=== PATIENT | female | born 1935 | race Asian ===

== ENCOUNTER 2022-10-02 01:15 | Inpatient (IN) | payer OTHER, MEDICAID ==
[~2022-10-02] VITALS: Ht 157.5 cm; Wt 63.5 kg
--- NOTE | 2022-10-02 01:19 | NUR ---
DONTE ALS TO BED #11
--- NOTE | 2022-10-02 01:20 | NUR ---
DR. JOSEPH EVALUATING PT
--- NOTE | 2022-10-02 01:20 | NUR ---
DONTE FROM [facility] WITH C/O CHEST PAIN SINCE 28. PT SPEAKS MANDARIN/KHMER. INTERPRETOR WAS USED. PMH : STROKE, HTN, SD, A-FIB, SSS, CHF
[2022-10-02 01:22] VITALS: BP 113/74
[2022-10-02 01:35] LABS: BASOPHILS # (AUTO) 0.1 K/uL (0.00-0.22); BASOPHILS % (AUTO) 1.3 % (0.0-2.0); EOSINOPHILS # (AUTO) 0.1 K/uL (0-0.4); EOSINOPHILS % (AUTO) 2.6 % (0.0-4.0); HEMATOCRIT 34.6 % (36-48); HEMOGLOBIN 11.3 g/dL (12.0-16.0); LYMPHOCYTES # (AUTO) 0.6 K/uL (2.5-16.5); LYMPHOCYTES % (AUTO) 11.6 % (20.5-51.1); MEAN CORPUSCULAR HEMOGLOBIN 23 pg (27-31); MEAN CORPUSCULAR HGB CONC 33 g/dL (33-37); MEAN CORPUSCULAR VOLUME 70.9 fL (80-94); MONOCYTES # (AUTO) 0.5 K/uL (0.8-1.0); MONOCYTES % (AUTO) 10.6 % (1.7-9.3); NEUTROPHILS # (AUTO) 3.7 K/uL (1.8-7.7); NEUTROPHILS % (AUTO) 73.9 % (42.2-75.2); PLATELET COUNT (AUTO) 210 K/uL (140-450); RED BLOOD CELL COUNT(AUTO) 4.88 MIL/uL (4.20-5.40); RED CELL DISTRIBUTION WIDTH 14.7 % (11.6-13.7)
[2022-10-02 02:07] LABS: ALBUMIN 3.1 g/dL (3.4-5.0); ANION GAP 13.1 (8-16); ASPARTATE AMINOTRANSFERASE 23 U/L (15-37); CARBON DIOXIDE 27.1 mmol/L (21-32); CHLORIDE 106 mmol/L (98-107); CREATININE 0.9 mg/dL (0.6-1.3); GLUCOSE 103 mg/dL (74-106); POTASSIUM 4.2 mmol/L (3.5-5.1); SODIUM SERUM 142 mmol/L (136-145); TOTAL BILIRUBIN 0.5 mg/dL (0.0-1.0); UREA NITROGEN, BLOOD 24 mg/dL (7-18)
[2022-10-02] MEDS ORDERED: MORPHINE SULFATE 2 MG/ML SYR IM STA (02:40)
[2022-10-02] MEDS ORDERED: ACETAMINOPHEN EXTRA STRENGTH 500 MG TAB PO ONE (02:40)
--- NOTE | 2022-10-02 02:40 | NUR ---
EAN SWAB OBTAINED AND SENT TO LAB
--- NOTE | 2022-10-02 02:49 | NUR ---
TO CT VIA [facility]
--- NOTE | 2022-10-02 03:00 | NUR ---
RETURNEED FROM CT
--- NOTE | 2022-10-02 07:30 | NUR ---
REPORT RECEIVED FROM FAUSTINA CIFUENTES. ASSUMED CARE AT THIS TIME
[2022-10-02 08:34] LABS: PROTHROMBIN TIME 10.5 secs (10.8-13.4)
--- NOTE | 2022-10-02 08:40 | NUR ---
PT MOVED TO ER BED2
--- NOTE | 2022-10-02 08:42 | NUR ---
Teofilo salgado in [facility] - 10/02/22 at 0849 by PHSEP pt provided w/ breakfast. pt awake and eating in bed
--- NOTE | 2022-10-02 08:42 | NUR ---
pt provided w/ breakfast. left at bedside
--- NOTE | 2022-10-02 09:00 | NUR ---
assessment attempted using mandarin seam rubber. pt not answering to questions. no visible distress. on alarm security or surveillance monitor. bed at lowest position, bed rails upx2. mandarin seam rubber #[id number]
[2022-10-02] MEDS ORDERED: ACETAMINOPHEN 325 MG TAB PO PRN (10:20)
[2022-10-02] MEDS ORDERED: POTASSIUM CHLORIDE 10 MEQ TABER PO PRN (10:20)
[2022-10-02] MEDS ORDERED: ONDANSETRON 4 MG/2 ML VIAL IVP PRN (10:20)
[2022-10-02] MEDS ORDERED: HYDROcodone/APAP 7.5/325 MG 1 TAB PO PRN (10:20)
[2022-10-02] MEDS ORDERED: MAG SULF 2000 MG/WATER PREMIX 50 ML IV PRN (10:20)
--- NOTE | 2022-10-02 10:36 | NUR ---
US AT BEDSIDE
--- NOTE | 2022-10-02 11:44 | NUR ---
pt changed into clean gown and linen. denies pain at this time. repositioned ,given warm blanket and offered breakfast "not right now". mandarin baby formula worker #[id number]
--- NOTE | 2022-10-02 12:05 | NUR ---
pt offered and provided w/ lunch. "not right now" . left at bedside
--- NOTE | 2022-10-02 12:24 | NUR ---
call received from pt son CARISSA . son updated on pt status.
[2022-10-02 12:27] LABS: CHOL/HDL RATIO 2.7 (1-4.5); FREE T4 (FREE THYROXINE) 1.81 ng/dL (0.76-1.46); THYROID STIMULATING HORMONE 0.04 uIU/mL (0.34-3.74)
[2022-10-02 12:55] LABS: PROTHROMBIN TIME 11.1 secs (10.8-13.4)
--- NOTE | 2022-10-02 13:42 | NUR ---
PT UNCOOPERATIVE AND AGGITATED W/ ECHO AND STAFF. MD QUINTANA MADE AWARE
--- NOTE | 2022-10-02 14:19 | NUR ---
ASSISTED DOGGER. ECHO UNCOMPLETED.
--- NOTE | 2022-10-02 16:13 | NUR ---
pt provided w/ hygiene products . left at bedside
--- NOTE | 2022-10-02 16:24 | NUR ---
PATIENT HAS BEEN SCREENED AND CATEGORIZED MODERATE NUTRITION RISK. PATIENT WILL BE SEEN WITHIN 3-5 DAYS OF ADMISSION. REVIEWED BY DIONNE CAMARENA RD
--- NOTE | 2022-10-02 16:44 | NUR ---
PT SITTING IN BED EATING AND HR INCREASED TO [address]S [address] JVD[address] DR SOMMERS CONTACTED STATED HE WILL PUT IN ORDERS.
[2022-10-02] MEDS ORDERED: METOPROLOL 25 MG TAB ONE (16:49)
[2022-10-02] MEDS ORDERED: DIGOXIN 0.25 MG/ML AMP IV SCH (17:00)
[2022-10-02] MEDS: METOPROLOL 25 MG TAB PO SCH (17:16)
--- NOTE | 2022-10-02 17:43 | NUR ---
pt provided w/ dinner. "not right now" . left at bedside
[2022-10-02] MEDS: methIMAzole 5 MG TAB PO SCH (18:14)
--- NOTE | 2022-10-02 19:16 | NUR ---
REPORT GIVEN TO KISHOR CIFUENTES. TRANSFER OF CARE AT THIS TIME
--- NOTE | 2022-10-02 21:10 | NUR ---
Report given to Susana CIFUENTES for transfer of care.
[2022-10-02 21:15] VITALS: BP 140/68
--- NOTE | 2022-10-02 21:15 | NUR ---
PATIENT ADMITTED FROM ED, CAME VIA GURNEY, PATIENT IS MANDARIN SPEAKING ONLY, IS AWAKE, ALERT, NO SIGNS OF PAIN/DISCOMFORT NOTED, NO SIGNS OF DISTRESS NOTED. MRSA DONE. BEDSIDE CARE DONE, CALL LIGHT WITHIN REACH, BED IN LOW AND LOCKED POSITION.
[2022-10-03] VITALS: BP 130/64
--- NOTE | 2022-10-03 00:10 | NUR ---
PATIENT IS ASLEEP, NO SIGNS OF PAIN, NO SIGNS OF DISTRESS NOTED. SAFETY MEASURES IN PLACE.
[2022-10-03] MEDS: METOPROLOL 25 MG TAB PO SCH ×4 (01:06→20:08)
[2022-10-03] MEDS: DOCUSATE SODIUM 100 MG GELCAP PO SCH ×3 (01:06→20:08)
[2022-10-03 04:00] VITALS: BP 126/71
[2022-10-03] MEDS: methIMAzole 5 MG TAB PO SCH ×3 (05:17→20:09)
--- NOTE | 2022-10-03 07:22 | NUR ---
ENDORSED PATIENT TO DAY NURSE FOR CONTINUITY OF CARE. NEEDS MET THROUGHOUT THE SHIFT. PATIENT IN STABLE CONDITION.
[2022-10-03 07:24] LABS: BASOPHILS # (AUTO) 0.1 K/uL (0.00-0.22); BASOPHILS % (AUTO) 1.1 % (0.0-2.0); EOSINOPHILS # (AUTO) 0.1 K/uL (0-0.4); EOSINOPHILS % (AUTO) 1.8 % (0.0-4.0); HEMATOCRIT 35.9 % (36-48); HEMOGLOBIN 11.6 g/dL (12.0-16.0); LYMPHOCYTES # (AUTO) 0.6 K/uL (2.5-16.5); LYMPHOCYTES % (AUTO) 10.1 % (20.5-51.1); MEAN CORPUSCULAR HEMOGLOBIN 23 pg (27-31); MEAN CORPUSCULAR HGB CONC 32 g/dL (33-37); MEAN CORPUSCULAR VOLUME 71.4 fL (80-94); MONOCYTES # (AUTO) 0.6 K/uL (0.8-1.0); MONOCYTES % (AUTO) 9.7 % (1.7-9.3); NEUTROPHILS # (AUTO) 4.6 K/uL (1.8-7.7); NEUTROPHILS % (AUTO) 77.3 % (42.2-75.2); PLATELET COUNT (AUTO) 215 K/uL (140-450); RED BLOOD CELL COUNT(AUTO) 5.03 MIL/uL (4.20-5.40); RED CELL DISTRIBUTION WIDTH 14.5 % (11.6-13.7); WHITE BLOOD COUNT (AUTO) 5.9 K/uL (4.8-10.8)
--- NOTE | 2022-10-03 07:30 | NUR ---
PT HAS BEEN ENDORSED BY CURRICULUM ASSISTANT NURSE FOR CONTINUITY OF CARE TO RN EMILIA AND MYSELF, PRECEPTOR, POC DISCUSSED. PT IS STABLE IN BED ON ROOM AIR WITH CHEST RISING AND FALLING EVEN AND UNLABORED. ALL SAFETY MEASURES IN PLACE, CALL LIGHT WITHIN REACH. WILL CONTINUE TO MONITOR.
--- NOTE | 2022-10-03 07:30 | NUR ---
RECIEVED PATIENT FROM TELEPHONE OPERATOR RECEPTIONIST NURSE.PATIENT IS SLEEPING .CHEST RISING AND FALLING EVENLY.ALL SAFETY MEASURES IN PLACE.POC DISCUSSED,WILL CONTINUE TO MONITOR.
[2022-10-03 07:36] LABS: ANION GAP 13.1 (8-16); CARBON DIOXIDE 27.1 mmol/L (21-32); CHLORIDE 103 mmol/L (98-107); CREATININE 0.6 mg/dL (0.6-1.3); GLUCOSE 79 mg/dL (74-106); POTASSIUM 4.2 mmol/L (3.5-5.1); SODIUM SERUM 139 mmol/L (136-145); UREA NITROGEN, BLOOD 18 mg/dL (7-18)
[2022-10-03 07:45] LABS: MAGNESIUM 1.9 mg/dL (1.8-2.4); PHOSPHORUS 3.1 mg/dL (2.5-4.9)
[2022-10-03 08:00] VITALS: BP 120/66
[2022-10-03] MEDS: ECOTRIN 81 MG TABEC PO SCH (09:05)
[2022-10-03] MEDS: PANTOPRAZOLE 40 MG INJ VIAL IVP SCH (09:06)
[2022-10-03 12:00] VITALS: BP 120/66
--- NOTE | 2022-10-03 12:44 | NUR ---
LORRIE MEDICATION ADMINISTERED PER MD ORDER, PT TOLERATED ADMINISTRATION. PT SON AT BEDSIDE, PT SITTING UP IN BED EATING WITH ASSISTANCE. ALL SAFETY MEASURES IN PLACE, CALL LIGHT WITHIN REACH. WILL CONTINUE TO MONITOR.
--- NOTE | 2022-10-03 13:52 | NUR ---
MADE ROUNDS, PT SITTING UP IN BED WITH CHEST RISING AND FALLING EVEN AND UNLABORED. ALL NEEDS HAVE BEEN MET. ALL SAFETY MEASURES IN PLACE, CALL LIGHT WITHIN REACH. WILL CONTINUE TO MONITOR.
--- NOTE | 2022-10-03 15:00 | NUR ---
DISCHARGE PLANNING PATIENT IS AN 87 FEMALE ADMITTED IN THE [facility]/ER ON 10/02/2022 DUE TO CHEST PAIN. PATIENT WAS BIB FROM [facility]. SW WAS NOT ABLE TO MEET WITH PATIENT AT BEDSIDE TO DISCUSS AND GATHER HER COLLATERAL INFORMATION. PATIENT WAS NOT AWAKE. SANA CALL TO PATIENT'S SON CARISSA SOMMERS AT TO DISCUSS AND GATHER PATIENT'S HISTORY AND COLLATERAL INFORMATION. PER PATIENT'S SON PATIENT HAS BEEN IN THE FACILITY ONLY FOR ABOUT A WEEK SINCE 09/29/2022. PER PATIENT'S SON HE IS VERY INVOLVED WITH PATIENT CARE, STATED THAT HE VISIT HIS MOTHER ALREADY IN THE FACILITY AND HE IS ON AGREEMENT FOR HIS MOTHER TO RETURN TO THE FACILITY WHEN SHE IS READY AND STABLE TO DISCHARGE FROM [facility]. PATIENT'S SON THANKED SANA FOR THE UPDATE ON PATIENT, INFORMATION AND ENDED THE CALL. SANA CONTACTED SN[facility]/FACILITY [facility] AT SPOKE TO KISHOR (BUGGYMAN) ABOUT PATIENT INFORMATION, PER KISHOR PATIENT WAS SEND TO THEIR FACILITY ON 09/29/2022 AND THE SON WAS UNABLE TO TAKE CARE OF HER AT HOME. PATIENT IS ON A BED HOLD ON SKILL CARE ABLE TO RETURN TO THEIR FACILITY WHEN SHE IS READY AND STABLE TO GO BACK. PATIENT HAS A POLTS. SANA THANKED KISHOR FOR INFORMATION AND WILL ENDORSE CM. SANA/CM WILL FOLLOW UP WITH PATIENT NEEDED.
--- NOTE | 2022-10-03 15:40 | NUR ---
PT ATTEMPTING TO GET OUT OF BED, TRANSLATED SHE IS A FALL RISK AND NEEDS TO STAY IN BED. UPON EDUCATING, PTS SISTER ARRIVED. PT SISTER NOT AT BEDSIDE.
[2022-10-03 16:00] VITALS: BP 135/70
--- NOTE | 2022-10-03 19:10 | NUR ---
RECEIVED PATIENT FROM DAY NURSE FOR CONTINUITY OF CARE. PATIENT WAS EATING, AWAKE AND ALERT. NO SIGNS OF PAIN/DISCOMFORT NOTED, NO SIGNS OF DISTRESS NOTED. BED IN LOW AND LOCKED POSITION, CALL LIGHT WITHIN REACH.
[2022-10-03 20:00] VITALS: BP 124/63
--- NOTE | 2022-10-03 20:16 | NUR ---
SCHEDULED MEDICATIONS GIVEN ORDERED. ALL SAFETY MEASURES IN PLACE
[2022-10-04] VITALS: BP 127/78
--- NOTE | 2022-10-04 00:10 | NUR ---
VITALS T 97.3, P 71, BP 127/78, RESP 18 AND SATING @93% ON ROOM AIR, NO SIGNS OF PAIN/DISCOMFORT NOTED, NO SIGNS OF DISTRESS NOTED. BED IN LOW AND LOCKED POSITION.
--- NOTE | 2022-10-04 01:40 | NUR ---
PATIENT WAS FOUND STANDING BY THE DOOR OF HER ROOM, UNSTEADY GAIT, STAFF TRIED TO PUT PATIENT BACK TO BED, GOT AGITATED, WAS HITTING NURSES AND COMMERCIAL DRIVER'S LICENSE DRIVER. WAS NOTIFIED. ORDER GIVEN TO GIVE HALDOL IM, ONCE AND TO PUT PATIENT ON RESTRAINTS, ORDER CARRIED OUT. WILL CONTINUE TO MONITOR THE PATIENT.
[2022-10-04] MEDS ORDERED: HALOPERIDOL IM 5 MG/ML VIAL IM SCH (02:25)
[2022-10-04] MEDS ORDERED: LORazepam 2 MG/ML VIAL IM/IVP PRN (02:25)
[2022-10-04 04:00] VITALS: BP 147/91
--- NOTE | 2022-10-04 04:32 | NUR ---
PATIENT IS AWAKE, IS NOT SHOWING ANY BEHAVIORS AT THIS TIME, NO SIGNS OF PAIN/DISCOMFORT NOTED, NO SIGNS OF DISTRESS NOTED. SOFT RESTRAINTS ON BILATERAL WRIST, REMOVED AND CHECKED, NO INJURY NOTED. BED IN LOW AND LOCKED POSITION. WILL CONTINUE TO MONITOR THE PATIENT.
[2022-10-04] MEDS: methIMAzole 5 MG TAB PO SCH ×2 (04:40→13:23)
[2022-10-04] MEDS: METOPROLOL 25 MG TAB PO SCH ×2 (04:40→13:22)
--- NOTE | 2022-10-04 05:17 | NUR ---
PATIENT IS ASLEEP, BREATHING EVEN AND NON LABORED, NO SIGNS OF PAIN NOTED. WILL CONTINUE TO MONITOR THE PATIENT.
[2022-10-04 07:13] LABS: BASOPHILS % (AUTO) 0.5 % (0.0-2.0); EOSINOPHILS % (AUTO) 0.5 % (0.0-4.0); HEMATOCRIT 38.4 % (36-48); HEMOGLOBIN 12.2 g/dL (12.0-16.0); LYMPHOCYTES # (AUTO) 0.4 K/uL (2.5-16.5); LYMPHOCYTES % (AUTO) 6.1 % (20.5-51.1); MEAN CORPUSCULAR HEMOGLOBIN 23 pg (27-31); MEAN CORPUSCULAR HGB CONC 32 g/dL (33-37); MEAN CORPUSCULAR VOLUME 71.7 fL (80-94); MONOCYTES # (AUTO) 0.6 K/uL (0.8-1.0); MONOCYTES % (AUTO) 9.1 % (1.7-9.3); NEUTROPHILS # (AUTO) 5.5 K/uL (1.8-7.7); NEUTROPHILS % (AUTO) 83.8 % (42.2-75.2); PLATELET COUNT (AUTO) 236 K/uL (140-450); RED BLOOD CELL COUNT(AUTO) 5.35 MIL/uL (4.20-5.40); RED CELL DISTRIBUTION WIDTH 14.8 % (11.6-13.7); WHITE BLOOD COUNT (AUTO) 6.6 K/uL (4.8-10.8)
--- NOTE | 2022-10-04 07:25 | NUR ---
ENDORSED PATIENT TO DAY NURSE FOR CONTINUITY OF CARE. PATIENT IN STABLE CONDITION.
[2022-10-04 07:27] LABS: ANION GAP 13.4 (8-16); CARBON DIOXIDE 27.5 mmol/L (21-32); CHLORIDE 104 mmol/L (98-107); CREATININE 0.7 mg/dL (0.6-1.3); GLUCOSE 113 mg/dL (74-106); POTASSIUM 3.9 mmol/L (3.5-5.1); SODIUM SERUM 141 mmol/L (136-145); UREA NITROGEN, BLOOD 18 mg/dL (7-18)
[2022-10-04 08:00] VITALS: BP 148/70
[2022-10-04] MEDS ORDERED: TAP5 PO (09:27)
[2022-10-04] MEDS ORDERED: METO50TE2 PO (09:27)
[2022-10-04] MEDS ORDERED: ASPI-1856 PO (09:27)
[2022-10-04] MEDS ORDERED: LISI5TAB18 PO (09:28)
[2022-10-04] MEDS: PANTOPRAZOLE 40 MG INJ VIAL IVP SCH (10:05)
[2022-10-04] MEDS: ECOTRIN 81 MG TABEC PO SCH (10:10)
[2022-10-04] MEDS: DOCUSATE SODIUM 100 MG GELCAP PO SCH (10:11)
[2022-10-04 12:00] VITALS: BP 138/76
--- NOTE | 2022-10-04 13:46 | NUR ---
DC PLANNING: PATIENT HAS A DC ORDER TO RETURN TO [facility] CALLED DOUG STAFFORD SPOKE WITH MIRYAM STATED PT CAN GO TO ROOM 20B KISHOR FROM [facility] WILL ARRANGE TRANSPORT CAR SEALER TIME 4PM NOTIFIED KORI CIFUENTES. ABILIO TO FOLLOW
[2022-10-04 14:13] VITALS: BP 138/76
[2022-10-04 16:00] VITALS: BP 126/73
--- NOTE | 2022-10-04 18:48 | NUR ---
[employer] NON-EMERGENCY TRANSPORTATION STUDENT NURSE PATIENT IN STABLE CONDITION FOR [facility]. DISCHARGE REPORT GIVE TO SVETA. DAUGHTER AT BEDSIDE WHILE TRANSPORTATION IN PROCESS. TEL. MONITOR, IV ACCESS, A7 WRIST BAND REMOVE PRIO PATIENT BE TRANSPORT OUT
[2022-10-05] MEDS ORDERED: METOPROLOL SUCCINATE 50 MG TABER PO SCH (09:00)
[2022-10-05] MEDS ORDERED: lisinopriL 5 MG TAB PO SCH (09:00)
== END 2022-10-04 18:50 | DRG 313 ==
LOC: MED 01:15 → MTU 05:47
DX: R07.89 Other chest pain (principal); I48.20 Chronic atrial fibrillation, unspecified; E44.1 Mild protein-calorie malnutrition; I50.22 Chronic systolic (congestive) heart failure; D64.9 Anemia, unspecified; E86.0 Dehydration; F03.90 Unspecified dementia, unspecified severity, without behavioral disturbance, psychotic disturbance, mood disturbance, and anxiety; E05.90 Thyrotoxicosis, unspecified without thyrotoxic crisis or storm; Z20.822 Contact with and (suspected) exposure to COVID-19; I11.0 Hypertensive heart disease with heart failure; I49.5 Sick sinus syndrome; Z68.25 Body mass index [BMI] 25.0-25.9, adult; Z79.899 Other long term (current) drug therapy; Z95.0 Presence of cardiac pacemaker; Z79.82 Long term (current) use of aspirin
CPT/HCPCS: 36415; 70450; 71045; 72125; 76536; 80048; 80053; 82140; 82150; 83036; 83605; 83690; 83735; 83880; 84100; 84439; 84443; 84484; 85025; 85610; 85730; 87081; 93005; 96372; 97116; 97163-GP; 99285; C9113; J1160; J1630; J1644; J2270; Q0092